=== PATIENT | female | born 1995 | race Caucasian/White ===

== ENCOUNTER → 2017-08-25 | Outpatient (CLI) | payer OTHER ==
--- NOTE | 2017-08-26 09:07 | RAD ---
Ultrasound pelvis Indication: Lower abdominal pain Technique: Grayscale, color Doppler and spectral waveform ultrasound images of the pelvis obtained. Comparison: None Findings: The uterus measures 7.6 x 3.4 x 7.2 cm (longitudinal, AP, transverse) with IUD in place. Cervix within normal limits. Left ovary measures 3.7 x 2.5 x 3.2 cm with a round anechoic well marginated cyst measuring 2.5 x 1.6 x 2.4 cm without internal vascularity. Blood flow is maintained in the left ovary. Endometrial stripe measures 7 mm and is within normal limits. Right ovary measures 3.9 x 1.4 x 2.7 cm with multiple follicles and demonstrates evidence of blood flow. No free pelvic fluid. Impression: 1. Ovaries demonstrate evidence of blood flow. 2. Simple appearing left ovarian cyst/dominant follicle. 3. IUD in place.
== END | disposition home or self-care (01) ==
LOC: US 16:19
PROVIDERS: ATTEND Nurse Practitioner Adult Health
DX: R10.84 Generalized abdominal pain (principal); Z97.5 Presence of (intrauterine) contraceptive device
CPT/HCPCS: 76830; 76856

== ENCOUNTER → 2018-03-17 | Outpatient (CLI) | payer BC ==
--- NOTE | 2018-03-17 15:09 | RAD ---
EXAM: Abdomen and pelvis CT without intravenous contrast. HISTORY: Right flank pain. TECHNIQUE: Computed tomographic images of the abdomen and pelvis were obtained without contrast. Multiplanar reformatting was performed. *One or more of the following individualized dose reduction techniques were utilized for this examination: 1. Automated exposure control. 2. Adjustment of the mA and/or kV according to patient size. 3. Use of iterative reconstruction technique. COMPARISON: None. FINDINGS: Evaluation of the lower thorax is unremarkable. No suspicious hepatic lesion is seen. There may be a tiny cyst within the right hepatic lobe. The gallbladder, pancreas, spleen and adrenal glands are unremarkable. There is no evidence of nephroureterolithiasis. There is no hydronephrosis. There is an intrauterine contraceptive device within the endometrial cavity. There is an 11 x 4 mm calcification in the region of the left vaginal fornix. There is a small amount of pelvic free fluid. There are small ovarian follicles. There is no appendicitis. There is no bowel obstruction. There is no abnormal bowel wall thickening. There is no lymphadenopathy. There is no suspicious osseous lesion. IMPRESSION: 1. No evidence of nephro ureterolithiasis or obstructive uropathy. 2. Small calcification in expected location of the left vaginal fornix. Electronically signed by: Whit Valentin MD (03/17/2018 3:06 PM) [place] [id number]
== END | disposition home or self-care (01) ==
LOC: CT 14:27
PROVIDERS: ATTEND Nurse Practitioner Family
DX: N89.8 Other specified noninflammatory disorders of vagina (principal); Z97.5 Presence of (intrauterine) contraceptive device
CPT/HCPCS: 74176

== ENCOUNTER 2019-01-27 23:45 | Emergency (ER) | payer BC ==
[~2019-01-27] VITALS: Ht 160 cm; Wt 56.7 kg
--- NOTE | 2019-01-28 | ED.ADGEN ---
Adult General Chief Complaint Chief Complaint ".. I ve been hurting a while.. Severe at times.. here in my Rt. side ... and back...".. sometime it hurts down into my lower abdomen....but mostly in the middle here on side...." HPI HPI Patient is a 23 year old FEMALE who presents with headache, back and flank pain. Patient denies previous history of kidney stones. Patient has history of gallbladder disease. There is no family history of irritable bowel or bowel disease. Brother strong family history of kidney stones. Patient denies any trauma. Patient denies any intake bad food. Patient denies any travel or specific ill contacts. Patient normally healthy. Patient does have a history of migraine headaches. No history cardiac disease. No history gallbladder disease. No history of kidney stones with her. No history of recent injury. Pt follows with Dr. Loza. Review of Systems Review of Systems Constitutional: Denies fever or chills [] Eyes: Denies change in visual acuity, redness, or eye pain [] HENT: Denies nasal congestion or sore throat [] Respiratory: Denies cough or shortness of breath [] Cardiovascular: No additional information not addressed in HPI [] GI: Rt upper and mid abdominal pain, nausea. No, vomiting, bloody stools or diarrhea [] : Denies dysuria or hematuria [] Musculoskeletal: Complaints of Rt flank pain Integument: Denies rash or skin lesions [] Neurologic: Denies headache, focal weakness or sensory changes [] Endocrine: Denies polyuria or polydipsia [] All other systems were reviewed and found to be within normal limits, except as documented in this note. Family History Family History Renal stones with family members Current Medications Current Medications Current Medications Medications (Trade) Dose Ordered Sig/Sandrine Start Time Stop Time Status Last Admin Dose Admin Famotidine (Pepcid Vial) 20 mg 1X ONCE 01/28/19 00:30 01/28/19 01:06 DC 01/28/19 01:10 20 MG Info (Do NOT chart on this entry -- for MONITORING) 1 each PRN DAILY PRN 01/28/19 01:30 01/28/19 04:32 DC Iohexol (Omnipaque 240 Mg/ml) 50 ml 1X ONCE 01/28/19 01:30 01/28/19 01:31 DC 01/28/19 02:27 50 ML Iohexol (Omnipaque 300 Mg/ml) 75 ml 1X ONCE 01/28/19 01:30 01/28/19 01:31 DC 01/28/19 02:27 75 ML Lactated Ringer's 1,000 ml @ 1,000 mls/hr Q1H 01/28/19 00:30 01/28/19 01:29 DC 01/28/19 01:10 1,000 MLS/HR Ondansetron HCl (Zofran) 8 mg 1X ONCE 01/28/19 00:30 01/28/19 01:06 DC 01/28/19 01:10 8 MG Allergies Allergies Allergies Coded Allergies Type Severity Reaction Last Updated Verified No Known Drug Allergies 01/28/19 No Physical Exam Physical Exam Constitutional: Well developed, well nourished, moderate acute distress, non- toxic appearance. [] HENT: Normocephalic, atraumatic, bilateral external ears normal, oropharynx moist, no oral exudates, nose normal. [] Eyes: PERRLA, EOMI, conjunctiva normal, no discharge. [] Neck: Normal range of motion, no tenderness, supple, no stridor. [] Cardiovascular:Heart rate regular rhythm, no murmur [] Lungs & Thorax: Bilateral breath sounds clear to auscultation [] Abdomen: Bowel sounds normal, soft, mid right abdomen tenderness, no masses, no pulsatile masses. [] Patient declines rectal and pelvic exams this time. Rebound to right mid and upper abdomen Skin: Warm, dry, no erythema, no rash. [] Back: No tenderness, right CVA tenderness. [] Extremities: No tenderness, no cyanosis, no clubbing, ROM intact, no edema. [] No true psoas sign noted Neurologic: Alert and oriented X 3, normal motor function, normal sensory function, no focal deficits noted. [] Psychologic: Affect anxious, judgement normal, mood normal. [] Current Patient Data Vital Signs Vital Signs Date Time Temp Pulse Resp B/P (MAP) Pulse Ox O2 Delivery O2 Flow Rate FiO2 01/28/19 04:20 76 16 102/55 (71) 100 Room Air 01/27/19 23:53 98.6 Lab Results Laboratory Tests Test 01/28/19 00:00 01/28/19 00:09 01/28/19 01:00 Urine Collection Type Unknown Urine Color Yellow Urine Clarity Clear Urine pH 7.0 Urine Specific [place] 1.020 Urine Protein Neg (NEG-TRACE) Urine Glucose (UA) Neg mg/dL (NEG) Urine Ketones (Stick) Neg mg/dL (NEG) Urine Blood Neg (NEG) Urine Nitrite Neg (NEG) Urine Bilirubin Neg (NEG) Urine Urobilinogen Dipstick 0.2 mg/dL (0.2 mg/dL) Urine Leukocyte Esterase Neg (NEG) Urine RBC 0 /HPF (0-2) Urine WBC Occ /HPF (0-4) Urine Squamous Epithelial Cells Occ /LPF Urine Bacteria 0 /HPF (0-FEW) Urine Opiates Screen Neg (NEG) Urine Methadone Screen Neg (NEG) Urine Barbiturates Neg (NEG) Urine Phencyclidine Screen Neg (NEG) Urine Amphetamine/Methamphetamine Neg (NEG) Urine Benzodiazepines Screen Neg (NEG) Urine Cocaine Screen Neg (NEG) Urine Cannabinoids Screen Neg (NEG) Urine Ethyl Alcohol Neg (NEG) POC Urine HCG, Qualitative hcg negative (Negative) White Blood Count 10.1 x10^3/uL (4.0-11.0) Red Blood Count 4.86 x10^6/uL (3.50-5.40) Hemoglobin 13.0 g/dL (12.0-15.5) Hematocrit 39.3 % (36.0-47.0) Mean Corpuscular Volume 81 fL (79-100) Mean Corpuscular Hemoglobin 27 pg (25-35) Mean Corpuscular Hemoglobin Concent 33 g/dL (31-37) Red Cell Distribution Width 14.3 % (11.5-14.5) Platelet Count 223 x10^3/uL (140-400) Neutrophils (%) (Auto) 92 % (31-73) H Lymphocytes (%) (Auto) 4 % (24-48) L Monocytes (%) (Auto) 4 % (0-9) Eosinophils (%) (Auto) 0 % (0-3) Basophils (%) (Auto) 0 % (0-3) Neutrophils # (Auto) 9.2 x10^3uL (1.8-7.7) H Lymphocytes # (Auto) 0.4 x10^3/uL (1.0-4.8) L Monocytes # (Auto) 0.4 x10^3/uL (0.0-1.1) Eosinophils # (Auto) 0.0 x10^3/uL (0.0-0.7) Basophils # (Auto) 0.0 x10^3/uL (0.0-0.2) Erythrocyte Sedimentation Rate 3 (0-25) Prothrombin Time 11.5 SEC (9.4-11.4) H Prothrombin Time INR 1.2 (0.9-1.1) H PTT 26 SEC (23-33) Sodium Level 142 mmol/L (136-145) Potassium Level 3.6 mmol/L (3.5-5.1) Chloride Level 105 mmol/L (98-107) Carbon Dioxide Level 26 mmol/L (21-32) Anion Gap 11 (6-14) Blood Urea Nitrogen 15 mg/dL (7-20) Creatinine 0.7 mg/dL (0.6-1.0) Estimated GFR (Cockcroft-Gault) 104.6 Glucose Level 100 mg/dL (70-99) H Calcium Level 8.8 mg/dL (8.5-10.1) Total Bilirubin 0.4 mg/dL (0.2-1.0) Direct Bilirubin 0.1 mg/dL (0.0-0.2) Aspartate Amino Transferase (AST) 23 U/L (15-37) Alanine Aminotransferase (ALT) 26 U/L (14-59) Alkaline Phosphatase 73 U/L (46-116) Creatine Kinase 117 U/L (26-192) Troponin I Quantitative < 0.017 ng/mL (0-0.055) Total Protein 6.9 g/dL (6.4-8.2) Albumin 4.1 g/dL (3.4-5.0) Lipase 116 U/L (73-393) EKG EKG My interpretation of EKG shows a sinus tachycardia 100 bpm. Does have left atrial bimodal P-wave's. Right axis. Does have a slight right bundle-branch block. Wave baseline due to respiratory distress[]. No findings acute STEMI with contralateral changes. Radiology/Procedures Radiology/Procedures My interpretation of acute abd. film. No free air under diaphragm. Nonspecific bowel gas pattern. There is stool in the colon. [][address] [address] IMAGING REPORT Signed PATIENT: MICHAEL RANGEL ACCOUNT: [id number] : 1995 LOCATION: ER AGE: 23 SEX: F EXAM STATUS: REG ER ORD. PHYSICIAN: GREG DURAN MD REASON: pain Flank and Rt lower abd. PROCEDURE: CT ABD PELV W/ORAL&IV CONTRAST CT abdomen and pelvis with contrast: Reason for examination: Right flank and lower abdominal pain. Helical images were obtained through the abdomen and pelvis with intravenous and oral contrast administered. Reconstruction was performed in sagittal and coronal planes. Exposure: One or more of the following individualized dose reduction techniques were utilized for this examination: 1. Automated exposure control 2. Adjustment of the mA and/or kV according to patient size 3. Use of iterative reconstruction technique. The lung bases are clear. The heart size is normal with no pericardial effusion. No abnormality seen at the liver, spleen, adrenal glands or pancreas. The gallbladder shows no cholelithiasis but there is suggestion of some pericholecystic fluid. The kidneys show no renal masses, renal calculi, hydronephrosis or evidence of obstructive uropathy. The abdominal aorta and inferior vena cava show no acute abnormalities. No abnormality seen at the appendix. There is a moderate amount of fecal material in the colon with no evidence of diverticulosis or diverticulitis or colitis evident. The small intestinal tract shows no dilatation, wall thickening or evidence of obstruction. No abnormality seen at the stomach. No abnormality seen at the bladder or uterus. There does appear to be 2 cm cystic-appearing lesion in the right ovary. No significant free fluid or free air seen in the abdomen or pelvis. IMPRESSION: No cholelithiasis but there is pericholecystic fluid around the gallbladder. 2 cm cystic lesion in the right ovary. No abnormality seen at the appendix. No renal calculi or evidence of obstructive uropathy. Electronically signed by: Milli Rivas MD (01/28/2019 2:49 AM) [facility] DICTATED AND SIGNED BY: MILLI RIVAS MD DATE: 01/28/19 0249 CC: ELEN LOZA MD; GREG DURAN MD ~ Course & Med Decision Making Course & Med Decision Making Pertinent Labs and Imaging studies reviewed. (See chart for details) Pt. to follow up with Dr. Loza office. Get re-eval. by [facility] CARE COORDINATOR for Ovarian cyst and endometriosis.. Consider outpatient gallbladder studies. Stay on a clear fluid diet for the next 2 days. No solids. No milk products. Allow bowel rest. Return if any concerns. Follow-up primary care. [] Final Impression Final Impression 1. Back Pain[]/right flank 2. Mid right abdomen pain 3. Rt Ovarian Cyst 2 cm 4. Pericholecystic fluid without evidence of cholelithiasis Dragon Disclaimer Dragon Disclaimer This electronic medical record was generated, in whole or in part, using a voice recognition dictation system. Discharge Summary Visit Information Final Diagnosis Problems Medical Problems: (1) Back pain Status: Acute (2) Ovarian cyst Status: Acute Brief Hospital Course Allergies Allergies Coded Allergies Type Severity Reaction Last Updated Verified No Known Drug Allergies 01/28/19 No Vital Signs Vital Signs Date Time Temp Pulse Resp B/P (MAP) Pulse Ox O2 Delivery O2 Flow Rate FiO2 01/28/19 04:20 76 16 102/55 (71) 100 Room Air 01/27/19 23:53 98.6 Lab Results Laboratory Tests Test 01/28/19 00:00 01/28/19 00:09 01/28/19 01:00 Urine Collection Type Unknown Urine Color Yellow Urine Clarity Clear Urine pH 7.0 Urine Specific [place] 1.020 Urine Protein Neg (NEG-TRACE) Urine Glucose (UA) Neg mg/dL (NEG) Urine Ketones (Stick) Neg mg/dL (NEG) Urine Blood Neg (NEG) Urine Nitrite Neg (NEG) Urine Bilirubin Neg (NEG) Urine Urobilinogen Dipstick 0.2 mg/dL (0.2 mg/dL) Urine Leukocyte Esterase Neg (NEG) Urine RBC 0 /HPF (0-2) Urine WBC Occ /HPF (0-4) Urine Squamous Epithelial Cells Occ /LPF Urine Bacteria 0 /HPF (0-FEW) Urine Opiates Screen Neg (NEG) Urine Methadone Screen Neg (NEG) Urine Barbiturates Neg (NEG) Urine Phencyclidine Screen Neg (NEG) Urine Amphetamine/Methamphetamine Neg (NEG) Urine Benzodiazepines Screen Neg (NEG) Urine Cocaine Screen Neg (NEG) Urine Cannabinoids Screen Neg (NEG) Urine Ethyl Alcohol Neg (NEG) Bedside Urine HCG, Qualitative hcg negative (Negative) White Blood Count 10.1 x10^3/uL (4.0-11.0) Red Blood Count 4.86 x10^6/uL (3.50-5.40) Hemoglobin 13.0 g/dL (12.0-15.5) Hematocrit 39.3 % (36.0-47.0) Mean Corpuscular Volume 81 fL (79-100) Mean Corpuscular Hemoglobin 27 pg (25-35) Mean Corpuscular Hemoglobin Concent 33 g/dL (31-37) Red Cell Distribution Width 14.3 % (11.5-14.5) Platelet Count 223 x10^3/uL (140-400) Neutrophils (%) (Auto) 92 % (31-73) Lymphocytes (%) (Auto) 4 % (24-48) Monocytes (%) (Auto) 4 % (0-9) Eosinophils (%) (Auto) 0 % (0-3) Basophils (%) (Auto) 0 % (0-3) Neutrophils # (Auto) 9.2 x10^3uL (1.8-7.7) Lymphocytes # (Auto) 0.4 x10^3/uL (1.0-4.8) Monocytes # (Auto) 0.4 x10^3/uL (0.0-1.1) Eosinophils # (Auto) 0.0 x10^3/uL (0.0-0.7) Basophils # (Auto) 0.0 x10^3/uL (0.0-0.2) Erythrocyte Sedimentation Rate 3 (0-25) Prothrombin Time 11.5 SEC (9.4-11.4) Prothromb Time International Ratio 1.2 (0.9-1.1) Activated Partial Thromboplast Time 26 SEC (23-33) Sodium Level 142 mmol/L (136-145) Potassium Level 3.6 mmol/L (3.5-5.1) Chloride Level 105 mmol/L (98-107) Carbon Dioxide Level 26 mmol/L (21-32) Anion Gap 11 (6-14) Blood Urea Nitrogen 15 mg/dL (7-20) Creatinine 0.7 mg/dL (0.6-1.0) Estimated GFR (Cockcroft-Gault) 104.6 Glucose Level 100 mg/dL (70-99) Calcium Level 8.8 mg/dL (8.5-10.1) Total Bilirubin 0.4 mg/dL (0.2-1.0) Direct Bilirubin 0.1 mg/dL (0.0-0.2) Aspartate Amino Transf (AST/SGOT) 23 U/L (15-37) Alanine Aminotransferase (ALT/SGPT) 26 U/L (14-59) Alkaline Phosphatase 73 U/L (46-116) Creatine Kinase 117 U/L (26-192) Troponin I Quantitative < 0.017 ng/mL (0-0.055) Total Protein 6.9 g/dL (6.4-8.2) Albumin 4.1 g/dL (3.4-5.0) Lipase 116 U/L (73-393) Brief Hospital Course Ms. Rangel is a 23 old female who presented with Rt mid up upper abd. pain. Discharge Information Condition at Discharge: Improved, Stable Disposition/Orders: D/C to Home Dischare Medications Current Medications Lactated Ringer's 1,000 ml @ 1,000 mls/hr Q1H IV Last administered on 01/28/19at 01:10; Admin Dose 1,000 MLS/HR; Start 01/28/19 at 00:30; Stop 01/28/19 at 01:29; Status DC Ondansetron HCl (Zofran) 8 mg 1X ONCE IV Last administered on 01/28/19at 01:10; Admin Dose 8 MG; Start 01/28/19 at 00:30; Stop 01/28/19 at 01:06; Status DC Famotidine (Pepcid Vial) 20 mg 1X ONCE IVP Last administered on 01/28/19at 01:10; Admin Dose 20 MG; Start 01/28/19 at 00:30; Stop 01/28/19 at 01:06; Status DC Iohexol (Omnipaque 240 Mg/ml) 50 ml 1X ONCE PO Last administered on 01/28/19at 02:27; Admin Dose 50 ML; Start 01/28/19 at 01:30; Stop 01/28/19 at 01:31; Status DC Iohexol (Omnipaque 300 Mg/ml) 75 ml 1X ONCE IV Last administered on 01/28/19at 02:27; Admin Dose 75 ML; Start 01/28/19 at 01:30; Stop 01/28/19 at 01:31; Status DC Info (Do NOT chart on this entry -- for MONITORING) 1 each PRN DAILY PRN MC SEE COMMENTS; Start 01/28/19 at 01:30; Stop 01/28/19 at 04:32; Status DC Active Scripts Active Zantac (Ranitidine Hcl) 150 Mg Tablet 150 Mg PO BID Hydrocodone-Ibuprofen 7.5-200 (Hydrocodone/Ibuprofen) 1 Each Tablet 1 Tab PO PRN Q6HRS PRN Discharge Summary Visit Information Final Diagnosis Problems Medical Problems: (1) Back pain Status: Acute (2) Ovarian cyst Status: Acute Brief Hospital Course Allergies Allergies Coded Allergies Type Severity Reaction Last Updated Verified No Known Drug Allergies 01/28/19 No Vital Signs Vital Signs Date Time Temp Pulse Resp B/P (MAP) Pulse Ox O2 Delivery O2 Flow Rate FiO2 01/28/19 04:20 76 16 102/55 (71) 100 Room Air 01/27/19 23:53 98.6 Lab Results Laboratory Tests Test 01/28/19 00:00 01/28/19 00:09 01/28/19 01:00 Urine Collection Type Unknown Urine Color Yellow Urine Clarity Clear Urine pH 7.0 Urine Specific [place] 1.020 Urine Protein Neg (NEG-TRACE) Urine Glucose (UA) Neg mg/dL (NEG) Urine Ketones (Stick) Neg mg/dL (NEG) Urine Blood Neg (NEG) Urine Nitrite Neg (NEG) Urine Bilirubin Neg (NEG) Urine Urobilinogen Dipstick 0.2 mg/dL (0.2 mg/dL) Urine Leukocyte Esterase Neg (NEG) Urine RBC 0 /HPF (0-2) Urine WBC Occ /HPF (0-4) Urine Squamous Epithelial Cells Occ /LPF Urine Bacteria 0 /HPF (0-FEW) Urine Opiates Screen Neg (NEG) Urine Methadone Screen Neg (NEG) Urine Barbiturates Neg (NEG) Urine Phencyclidine Screen Neg (NEG) Urine Amphetamine/Methamphetamine Neg (NEG) Urine Benzodiazepines Screen Neg (NEG) Urine Cocaine Screen Neg (NEG) Urine Cannabinoids Screen Neg (NEG) Urine Ethyl Alcohol Neg (NEG) Bedside Urine HCG, Qualitative hcg negative (Negative) White Blood Count 10.1 x10^3/uL (4.0-11.0) Red Blood Count 4.86 x10^6/uL (3.50-5.40) Hemoglobin 13.0 g/dL (12.0-15.5) Hematocrit 39.3 % (36.0-47.0) Mean Corpuscular Volume 81 fL (79-100) Mean Corpuscular Hemoglobin 27 pg (25-35) Mean Corpuscular Hemoglobin Concent 33 g/dL (31-37) Red Cell Distribution Width 14.3 % (11.5-14.5) Platelet Count 223 x10^3/uL (140-400) Neutrophils (%) (Auto) 92 % (31-73) Lymphocytes (%) (Auto) 4 % (24-48) Monocytes (%) (Auto) 4 % (0-9) Eosinophils (%) (Auto) 0 % (0-3) Basophils (%) (Auto) 0 % (0-3) Neutrophils # (Auto) 9.2 x10^3uL (1.8-7.7) Lymphocytes # (Auto) 0.4 x10^3/uL (1.0-4.8) Monocytes # (Auto) 0.4 x10^3/uL (0.0-1.1) Eosinophils # (Auto) 0.0 x10^3/uL (0.0-0.7) Basophils # (Auto) 0.0 x10^3/uL (0.0-0.2) Erythrocyte Sedimentation Rate 3 (0-25) Prothrombin Time 11.5 SEC (9.4-11.4) Prothromb Time International Ratio 1.2 (0.9-1.1) Activated Partial Thromboplast Time 26 SEC (23-33) Sodium Level 142 mmol/L (136-145) Potassium Level 3.6 mmol/L (3.5-5.1) Chloride Level 105 mmol/L (98-107) Carbon Dioxide Level 26 mmol/L (21-32) Anion Gap 11 (6-14) Blood Urea Nitrogen 15 mg/dL (7-20) Creatinine 0.7 mg/dL (0.6-1.0) Estimated GFR (Cockcroft-Gault) 104.6 Glucose Level 100 mg/dL (70-99) Calcium Level 8.8 mg/dL (8.5-10.1) Total Bilirubin 0.4 mg/dL (0.2-1.0) Direct Bilirubin 0.1 mg/dL (0.0-0.2) Aspartate Amino Transf (AST/SGOT) 23 U/L (15-37) Alanine Aminotransferase (ALT/SGPT) 26 U/L (14-59) Alkaline Phosphatase 73 U/L (46-116) Creatine Kinase 117 U/L (26-192) Troponin I Quantitative < 0.017 ng/mL (0-0.055) Total Protein 6.9 g/dL (6.4-8.2) Albumin 4.1 g/dL (3.4-5.0) Lipase 116 U/L (73-393) Brief Hospital Course Ms. Rangel is a 23 old female who presented with abdomen pain. Discharge Information Condition at Discharge: Improved, Stable Disposition/Orders: D/C to Home Dischare Medications Current Medications Lactated Ringer's 1,000 ml @ 1,000 mls/hr Q1H IV Last administered on 01/28/19at 01:10; Admin Dose 1,000 MLS/HR; Start 01/28/19 at 00:30; Stop 01/28/19 at 01:29; Status DC Ondansetron HCl (Zofran) 8 mg 1X ONCE IV Last administered on 01/28/19at 01:10; Admin Dose 8 MG; Start 01/28/19 at 00:30; Stop 01/28/19 at 01:06; Status DC Famotidine (Pepcid Vial) 20 mg 1X ONCE IVP Last administered on 01/28/19at 01:10; Admin Dose 20 MG; Start 01/28/19 at 00:30; Stop 01/28/19 at 01:06; S tatus DC Iohexol (Omnipaque 240 Mg/ml) 50 ml 1X ONCE PO Last administered on 01/28/19at 02:27; Admin Dose 50 ML; Start 01/28/19 at 01:30; Stop 01/28/19 at 01:31; Status DC Iohexol (Omnipaque 300 Mg/ml) 75 ml 1X ONCE IV Last administered on 01/28/19at 02:27; Admin Dose 75 ML; Start 01/28/19 at 01:30; Stop 01/28/19 at 01:31; Status DC Info (Do NOT chart on this entry -- for MONITORING) 1 each PRN DAILY PRN MC SEE COMMENTS; Start 01/28/19 at 01:30; Stop 01/28/19 at 04:32; Status DC Active Scripts Active Zantac (Ranitidine Hcl) 150 Mg Tablet 150 Mg PO BID Hydrocodone-Ibuprofen 7.5-200 (Hydrocodone/Ibuprofen) 1 Each Tablet 1 Tab PO PRN Q6HRS PRN Dragon Disclaimer This chart was dictated in whole or in part using Voice Recognition software in a busy, high-work load, and often noisy Emergency Department environment. It may contain unintended and wholly unrecognized errors or omissions. Dragon Disclaimer This chart was dictated in whole or in part using Voice Recognition software in a busy, high-work load, and often noisy Emergency Department environment. It may contain unintended and wholly unrecognized errors or omissions. GREG DURAN MD Jan 28, 2019 00:00
[2019-01-28] MEDS ORDERED: IV RINGERS SOLUTION,LACTATED 1,000 ML IV SCH (00:30)
[2019-01-28] MEDS ORDERED: FAMOTIDINE 20 MG/2 ML VIAL IVP ONE (00:30)
[2019-01-28] MEDS ORDERED: ONDANSETRON PF 4 MG/2 ML VIAL. IV ONE (00:30)
[2019-01-28 00:37] LABS: BARBITURATES NEG (NEG); BENZODIAZEPINES NEG (NEG); CANNABINOIDS NEG (NEG); COCAINE NEG (NEG); METHADONE NEG (NEG); OPIATES NEG (NEG); PHENCYCLIDINE NEG (NEG)
[2019-01-28 00:46] LABS: AMPHETAMINE/METHAMPHETAMINE NEG (NEG)
[2019-01-28 00:51] LABS: BACTERIA,URINE 0 /HPF (0-FEW); BILIRUBIN,URINE NEG (NEG); CLARITY,URINE CLEAR; COLOR,URINE YELLOW; GLUCOSE,URINE NEG (NEG); NITRITE,URINE NEG (NEG); RBC,URINE 0 /HPF (0-2); SQUAMOUS EPITHELIAL CELL,UR OCC /LPF; UROBILINOGEN,URINE 0.2 mg/dL (0.2 mg/dL); WBC,URINE OCC /HPF (0-4)
[2019-01-28 01:29] LABS: BASO % 0 % (0-3); EOS % 0 % (0-3); HEMATOCRIT 39.3 % (36.0-47.0); LYMPH # 0.4 x10^3/uL (1.0-4.8); LYMPH % 4 % (24-48); MEAN CORPUSCULAR HEMOGLOBIN 27 pg (25-35); MEAN CORPUSCULAR HGB CONC 33 g/dL (31-37); MEAN CORPUSCULAR VOLUME 81 fL (79-100); MONO # 0.4 x10^3/uL (0.0-1.1); MONO % 4 % (0-9); NEUT # 9.2 x10^3uL (1.8-7.7); NEUT % 92 % (31-73); PLATELET COUNT 223 x10^3/uL (140-400); RED BLOOD COUNT 4.86 x10^6/uL (3.50-5.40); RED CELL DISTRIBUTION WIDTH 14.3 % (11.5-14.5); WHITE BLOOD COUNT 10.1 x10^3/uL (4.0-11.0)
[2019-01-28] MEDS ORDERED: CONTRAST GIVEN MC PRN (01:30)
[2019-01-28] MEDS ORDERED: IOHEXOL 300 MG/ML 75 ML VIAL. IV ONE (01:30)
[2019-01-28] MEDS ORDERED: IOHEXOL 240 MG/ML 50ML VIAL. PO ONE (01:30)
--- NOTE | 2019-01-28 01:30 | EKG ---
[address] [address] Test Date: 2019-01-28 Test Time: 00:25:04 Pat Name: MICHAEL RANGEL Department: Room: Gender: F Geographical Historian: : 1995 Requested By: GREG DURAN Order Number: [id number] Reading MD: Measurements Intervals [place] Rate: 100 P: 60 IA: 170 QRS: 96 QRSD: 82 T: 69 QT: 338 QTc: 439 Interpretive Statements SINUS RHYTHM LEFT ATRIAL ABNORMALITY RIGHTWARD AXIS INCOMPLETE RIGHT BUNDLE BRANCH BLOCK ABNORMAL ECG RI6.01 No previous ECG available for comparison
[2019-01-28 01:40] LABS: ALBUMIN 4.1 g/dL (3.4-5.0); CALCIUM 8.8 mg/dL (8.5-10.1); CREATININE 0.7 mg/dL (0.6-1.0); DIRECT BILIRUBIN 0.1 mg/dL (0.0-0.2); GFR 104.6; POTASSIUM 3.6 mmol/L (3.5-5.1); TOTAL BILIRUBIN 0.4 mg/dL (0.2-1.0); TOTAL PROTEIN 6.9 g/dL (6.4-8.2)
[2019-01-28 02:25] LABS: SEDIMENTATION RATE 3 (0-25)
--- NOTE | 2019-01-28 02:44 | RAD ---
Acute abdominal series: Reason for examination: Abdominal pain. The heart size is normal. Mediastinum is unremarkable. Lung okeefe are clear. No acute bony abnormalities are seen in the chest. In the abdomen, there is no gross organomegaly. Psoas muscles are symmetric. The bowel gas pattern is nonobstructive with a moderate amount of fecal material in the colon. No abnormal calcifications are identified. No acute bony abnormalities are seen in the lumbar spine or pelvis. IMPRESSION: No acute cardiopulmonary disease. Nonspecific nonobstructive bowel gas pattern. Electronically signed by: Milli Solis MD (01/28/2019 2:41 AM) [facility]
--- NOTE | 2019-01-28 02:52 | RAD ---
CT abdomen and pelvis with contrast: Reason for examination: Right flank and lower abdominal pain. Helical images were obtained through the abdomen and pelvis with intravenous and oral contrast administered. Reconstruction was performed in sagittal and coronal planes. Exposure: One or more of the following individualized dose reduction techniques were utilized for this examination: 1. Automated exposure control 2. Adjustment of the mA and/or kV according to patient size 3. Use of iterative reconstruction technique. The lung bases are clear. The heart size is normal with no pericardial effusion. No abnormality seen at the liver, spleen, adrenal glands or pancreas. The gallbladder shows no cholelithiasis but there is suggestion of some pericholecystic fluid. The kidneys show no renal masses, renal calculi, hydronephrosis or evidence of obstructive uropathy. The abdominal aorta and inferior vena cava show no acute abnormalities. No abnormality seen at the appendix. There is a moderate amount of fecal material in the colon with no evidence of diverticulosis or diverticulitis or colitis evident. The small intestinal tract shows no dilatation, wall thickening or evidence of obstruction. No abnormality seen at the stomach. No abnormality seen at the bladder or uterus. There does appear to be 2 cm cystic-appearing lesion in the right ovary. No significant free fluid or free air seen in the abdomen or pelvis. IMPRESSION: No cholelithiasis but there is pericholecystic fluid around the gallbladder. 2 cm cystic lesion in the right ovary. No abnormality seen at the appendix. No renal calculi or evidence of obstructive uropathy. Electronically signed by: Milli Solis MD (01/28/2019 2:49 AM) [id number]
[2019-01-28] MEDS ORDERED: HYDR-1179 PO (03:34)
[2019-01-28] MEDS ORDERED: RANI-376 PO (03:34)
[2019-01-28 04:20] VITALS: BP 102/55
== END 2019-01-28 04:20 | disposition home or self-care (01) ==
LOC: ER 23:45
DX: N83.201 Unspecified ovarian cyst, right side (principal); K82.8 Other specified diseases of gallbladder
CPT/HCPCS: 36415; 74022; 74177; 80048; 80076; 80307; 81001; 81025; 82550; 83690; 84484; 85025; 85610; 85651; 85730; 93005; 96374; 96375; 99285; J2405; J3490; J7120; Q9966; Q9967